=== PATIENT | male | born 1935 | race Caucasian/White ===

== ENCOUNTER 2020-04-07 01:36 | Outpatient (CLI) | payer MEDICARE, SELFPAY ==
[2020-04-07 19:24] LABS: SARS-CoV-2 RNA PCR Negative
== END 2020-04-07 01:37 | disposition home or self-care (01) ==
LOC: ANHCOVIDDT 01:36
PROVIDERS: PCP Family Medicine; Visit Provider Plastic Surgery
DX: Z01.812 Encounter for preprocedural laboratory examination (principal); Z20.828 Contact with and (suspected) exposure to other viral communicable diseases
CPT/HCPCS: 87635; C9803; U0003

== ENCOUNTER 2020-04-09 01:30 | Day surgery (SDC) | payer MEDICARE, SELFPAY ==
[2020-04-06 13:54] VITALS: BMI 23.4
[2020-04-09] VITALS (10 sets, daily range): BP systolic 116–139; BP diastolic 66–86; PULSE 65–78; RESP 16–18; TEMP 36.9; O2SAT 93–96
--- NOTE | 2020-04-09 07:07 | WPDHPUPDATE1 ---
History and Physical Update Update Date/Time: 04/09/20 07:07 History and Physical has been reviewed, including an updated exam of the patient. There are NO changes in the patient's condition. Risks, benefits, and alternatives have been discussed and questions answered. Patient agrees to proceed with procedure.
--- NOTE | 2020-04-09 09:50 | SUR.OPER ---
specimen transported to lab by pawel meraz and given to karolina at [id number]
[2020-04-09] MEDS: LIDO 1%/EPINEPHRINE 1:100,000 20 ML VIAL 8 ML INFILTRATE (09:54)
[2020-04-09] MEDS: BACITRACIN OINTMENT 15 GM TUBE 1 APPLIC TOPICAL (10:22)
[2020-04-09] MEDS: BALANCED SALT SOLN OPHTH IRRIG 30 ML BTL EACH EYE (10:24)
--- NOTE | 2020-04-09 10:50 | PM.OP ---
Procedure Note - Brief Procedure Note - Brief Date of procedure: 04/09/20 Pre-op diagnosis: Neoplasm Unspecified Behavior Left Anterior Cheek Post-op diagnosis: other (SCCA of the left anterior cheek) Procedure performed: 1.5 cm excision of SCCA left anterior cheek with FS and complex repair4.0 cm. Description of procedure: The neoplasm on patient's Face was marked in preop. He was taken to the operating room and placed supine on the operating table. Time-out was held and confirmed. The site was prepped and draped in usual fashion. The marking was made for incision guideline. The site was infiltrated with 1% lidocaine with epinephrine. The incision was made about 2 mm outside of marked line. Specimen was dissected into the subcutaneous fat and taken off at that level. The most superior aspect was marked with a suture for 12 o'clock. 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 The wound edges were extensively undermined toward the nose and toward the cheek to allow advancement of cheek skin to fill the defect and to allow draping of the lower lid skin. Standing cones were removed at both ends. The wound was approximated with intradermal 4-0 Vicryl and a running 5 0 nylon. This was tolerated well. He is discharged with instructions in wound care and follow-up. No prescriptions were sent. Surgeon: Ozzy Miller MD
--- NOTE | 2020-04-09 11:14 | PM.PROC ---
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 He was rolled to the operating room placed supine on the operating table. The time-out was held and confirmed. The site was prepped and draped in the usual fashion including the left half of the Face. The surgical site was marked for excision. The region was locally infiltrated with 1% lidocaine with epinephrine. The excision was carried out just beyond the ink beth and dissection was carried to the subcutaneous tissue. The most superior aspect was marked with a suture for 12:00 o'clock. The specimen was sent to pathology. The pathologist reported that the neoplasm was a squamous cell carcinoma and the margins were free. Repair of this wound required extensive undermining toward the nose and laterally under the cheek. This allowed advancement of the cheek to approximate the wound margins and the lower lid skin to drape naturally. Standing cones were removed at both ends. The skin was closed with a running 5 0 nylon suture. He was discharged with instructions in wound care and follow-up. No prescriptions were sent. Anesthesia: local Surgeon: Ozzy Miller MD Estimated blood loss (mL): 2 Drains: No Packing: No Pathology: yes Complications: No immediate complications Condition: stable Disposition: same day Findings: FS margins were free.
== END 2020-04-09 11:05 | disposition home or self-care (01) ==
PROVIDERS: PCP Family Medicine; Visit Provider Plastic Surgery
PROC: (CPT 11642; principal; 2020-04-09 10:30)
DX: C44.329 Squamous cell carcinoma of skin of other parts of face (principal); Z79.02 Long term (current) use of antithrombotics/antiplatelets; Z79.82 Long term (current) use of aspirin
CPT/HCPCS: 11642; 13132; 88305; 88331; A9270